=== PATIENT | female | born 1975 | race Caucasian/White ===

== ENCOUNTER 2016-05-02 08:36 | Emergency (ER) | payer OTHER ==
[2016-05-02 08:55] VITALS: BP 136/85
--- NOTE | 2016-05-02 09:31 | UC ---
Respiratory Complaint HPI - HPI Summary HPI Summary: URI symptoms for past [address], TONEY, chills, myalgia, congestion. Now still congested, but has a productive cough and lost her voice. No fevers measured in past few days. Works in [employer], nurses there sent her home today. Non-smoker, no history of asthma - History of Current Complaint Chief Complaint: UCRespiratory Stated Complaint: COUGH,CONGESTION Time Seen by Provider: 05/02/16 09:14 Hx Obtained From: Patient Hx Last Menstrual Period: 04/30/16 Onset/Duration: Gradual Onset, Lasting Days - 6 Timing: Constant Severity Initially: Mild Severity Currently: Mild Character: Cough: Productive Aggravating Factors: Exertion, Recumbent Position Alleviating Factors: Nothing Associated Signs And Symptoms: Positive: Chills, URI, Nasal Congestion, Hoarseness - Risk Factors Pulmonary Embolism Risk Factors: Negative Cardiac Risk Factors: Negative Pseudomonas Risk Factors: Negative Tuberculosis Risk Factors: Negative - Allergies/Home Medications Allergies/Adverse Reactions: Allergies Allergy/AdvReac Type Severity Reaction Status Date / Time No Known Allergies Allergy Verified 05/02/16 08:52 Home Medications: Home Medications Chlorpheniramine-Phenylephrine [Brissa-Tryon Plus Cold 2-7.8-325 mg] 2 tab PO Q4H PRN 05/02/16 [History Confirmed 05/02/16] Dextromethorphan HBr [Vicks Dayquil Cough] 15 mg PO Q6H PRN 05/02/16 [History Confirmed 05/02/16] PMH/Surg Hx/FS Hx/Imm Hx Previously Healthy: Yes Respiratory History Of: Denies: Asthma - cough for 3 days , no fever Neurological History Of: Reports: Migraine - OFTEN, UNKNOWN ETIOLOGY Cancer History Of: Denies: Breast Cancer - Surgical History Surgical History: Yes Surgery Procedure, Year, and Place: 1998 LEFT ARM SURGERY, [place]. 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 Lives: With Family Alcohol Use: Occasionally Substance Use Type: None Smoking Status (MU): Former Smoker Amount Used/How Often: IN HIGH SCHOOL When Did the Patient Quit Smoking/Using Tobacco: 1991 - Immunization History Most Recent Influenza Vaccination: February 2016 Review of Systems Constitutional: Negative Skin: Negative Eyes: Negative ENT: Ear Ache, Nasal Discharge Respiratory: Cough Cardiovascular: Negative Gastrointestinal: Negative Genitourinary: Negative Motor: Negative Neurovascular: Negative Musculoskeletal: Negative Neurological: Negative Psychological: Negative All Other Systems Reviewed And Are Negative: Yes Physical Exam Triage Information Reviewed: Yes Appearance: Well-Appearing, No Pain Distress, Well-Nourished Vital Signs: Initial Vital Signs Temp 98.3 F 05/02/16 08:49 Pulse 70 05/02/16 08:49 Resp 16 05/02/16 08:49 BP 136/85 05/02/16 08:49 Pulse Ox 100 05/02/16 08:49 Vital Signs Reviewed: Yes Eye Exam: Normal ENT: Positive: Hearing grossly normal, Pharynx normal, Nasal congestion, TMs normal, Muffled/hoarse voice - hoarse. Negative: Tonsillar swelling, Tonsillar exudate, Trismus Neck exam: Normal Neck: Positive: Supple Respiratory Exam: Normal Respiratory: Positive: Lungs clear, Normal breath sounds, No respiratory distress, No accessory muscle use Cardiovascular Exam: Normal Musculoskeletal Exam: Normal Neurological Exam: Normal Psychological Exam: Normal Skin Exam: Normal UC Diagnostic Evaluation - Laboratory O2 Sat by Pulse Oximetry: 100 Respiratory Course/Dx - Differential Dx/Diagnosis Differential Diagnosis/HQI/PQRI: Asthma, Bronchitis, Lower Resp Infection, Sinusitis Provider Diagnoses: URI Discharge - Discharge Plan Condition: Stable Disposition: HOME Patient Education Materials: Upper Respiratory Infection (ED) Forms: *Work Release Referrals: Nahomi Hutchins NP [Primary Care Provider] -
== END 2016-05-02 09:32 | disposition home or self-care (01) ==
LOC: UCCORT 08:36
DX: J06.9 Acute upper respiratory infection, unspecified (principal); Z87.891 Personal history of nicotine dependence
CPT/HCPCS: 99211; G0463

== ENCOUNTER 2017-02-13 08:06 | Emergency (ER) | payer OTHER ==
[2017-02-13 08:25] VITALS: BP 121/78
--- NOTE | 2017-02-13 08:37 | UC ---
Throat Pain/Nasal Ariel HPI - HPI Summary HPI Summary: NASAL CONGESTION X 7 DAYS + COUGH , CHEST CONGESTION , PND, NO FEVER, NO CHILLS - History of Current Complaint Chief Complaint: UCRespiratory Stated Complaint: CONGESTION COUGH RUNNY NOSE ACHY Time Seen by Provider: 02/13/17 08:29 Hx Obtained From: Patient Hx Last Menstrual Period: 01/21/17 Onset/Duration: Gradual Onset, Lasting Weeks - 1, Still Present Severity: Moderate Cough: Sputum Appears - YELLOW Associated Signs & Symptoms: Positive: Nasal Discharge. Negative: Dysphagia, FB Sensation, Drooling, Wheezing, Hoarseness, Sinus Discomfort, Fever - Allergies/Home Medications Allergies/Adverse Reactions: Allergies Allergy/AdvReac Type Severity Reaction Status Date / Time No Known Allergies Allergy Verified 02/13/17 08:27 Home Medications: Home Medications Cholecalciferol [Vitamin D] 1,000 unit PO DAILY 02/13/17 [History Confirmed 05/01] Multiple Vitamin [Multi Vitamin] 1 tab PO DAILY 02/13/17 [History Confirmed 05/01] Phenylephrine-Diphenhydramine- [MUCINEX SINUS-MAX DAY GINI Liquid] 1 mis PO DAILY 02/13/17 [History Confirmed 02/13/17] PMH/Surg Hx/FS Hx/Imm Hx Previously Healthy: Yes - Surgical History Surgical History: Yes Surgery Procedure, Year, and Place: 1998 LEFT ARM SURGERY, [place]. 2005 & 2010 CSECTION X 2, [facility] - Family History Known Family History: Positive: Hypertension - Social History Alcohol Use: Occasionally Substance Use Type: None Smoking Status (MU): Never Smoked Tobacco Amount Used/How Often: IN HIGH SCHOOL When Did the Patient Quit Smoking/Using Tobacco: 1991 - Immunization History Most Recent Influenza Vaccination: February 2016 Review of Systems Constitutional: Negative Skin: Negative Eyes: Negative ENT: Sore Throat, Nasal Discharge Respiratory: Cough Cardiovascular: Negative Gastrointestinal: Negative Is Patient Immunocompromised?: No All Other Systems Reviewed And Are Negative: Yes Physical Exam Triage Information Reviewed: Yes Appearance: Well-Appearing, No Pain Distress, Well-Nourished Vital Signs: Initial Vital Signs Temp 97.8 F 02/13/17 08:15 Pulse 69 02/13/17 08:15 Resp 16 02/13/17 08:15 BP 121/78 02/13/17 08:15 Pulse Ox 100 11/01/17 08:15 Vital Signs Reviewed: Yes Eyes: Positive: Conjunctiva Clear ENT: Positive: Normal ENT inspection, Hearing grossly normal, Pharynx normal Neck exam: Normal Neck: Positive: Supple, Nontender, No Lymphadenopathy Respiratory: Positive: Chest non-tender, Lungs clear, Normal breath sounds Cardiovascular: Positive: RRR, No Murmur, Pulses Normal Skin Exam: Normal Throat Pain/Nasal Course/Dx - Differential Dx/Diagnosis Provider Diagnoses: URI Discharge - Discharge Plan Condition: Stable Disposition: HOME Patient Education Materials: Upper Respiratory Infection (ED) Referrals: Nahomi Hutchins NP [Primary Care Provider] - If Needed Additional Instructions: VIRAL ILLNESS, CONT. WITH REST, INCREASE FLUID, TRY FLONASE NASAL SPRAY DAILY FOLLOW UP NEEDED
== END 2017-02-13 08:43 | disposition home or self-care (01) ==
LOC: UCCORT 08:06
DX: J06.9 Acute upper respiratory infection, unspecified (principal)
CPT/HCPCS: 99211; G0463

== ENCOUNTER 2017-05-23 07:52 | Emergency (ER) | payer OTHER ==
[2017-05-23 08:10] VITALS: BP 112/74
== END 2017-05-23 08:44 | disposition left against medical advice (07) ==
LOC: UCCORT 07:52
DX: J02.9 Acute pharyngitis, unspecified (principal); Z53.21 Procedure and treatment not carried out due to patient leaving prior to being seen by health care provider
CPT/HCPCS: 87651

== ENCOUNTER 2018-06-03 16:40 | Emergency (ER) | payer OTHER ==
[2018-06-03 17:49] VITALS: BP 131/77
--- NOTE | 2018-06-03 18:50 | UC ---
Elbow Pain - HPI Summary HPI Summary: The patient is a 43-year-old female that injured her right elbow yesterday. She is right handed. She was working out with weights and using a step stool. The stool tipped over and she fell landing directly on her right elbow. She is unable to fully extend her arm. She has pain with full supination and pronation. She has been taking ibuprofen. - History of Current Complaint Chief Complaint: UCUpperExtremity Stated Complaint: RIGHT ELBOW INJURY Time Seen by Provider: 06/03/18 18:36 Hx Obtained From: Patient Hx Last Menstrual Period: 05/19/18 Onset/Duration: Hours Severity Initially: Moderate Severity Currently: Mild Pain Intensity: 0 - pain with movement only Pain Scale Used: 0-10 Numeric Location Of Pain: Is Diffuse Character: Dull, Aching Aggravating Factor(s): Movement Alleviating Factor(s): Rest, Ice, OTC Meds Associated Signs And Symptoms: Positive: Negative - Allergies/Home Medications Allergies/Adverse Reactions: Allergies Allergy/AdvReac Type Severity Reaction Status Date / Time No Known Allergies Allergy Verified 06/03/18 17:39 Home Medications: Home Medications NK [No Home Medications Reported] 06/03/18 [History Confirmed 06/03/18] PMH/Surg Hx/FS Hx/Imm Hx Previously Healthy: Yes - Surgical History Surgical History: Yes Surgery Procedure, Year, and Place: 1998 LEFT ARM SURGERY, [place]. 2005 & 2010 CSECTION X 2, [facility]. BREAST REDUCTION - Family History Known Family History: Positive: Hypertension - Social History Alcohol Use: Occasionally Substance Use Type: None Smoking Status (MU): Never Smoked Tobacco Amount Used/How Often: IN HIGH SCHOOL When Did the Patient Quit Smoking/Using Tobacco: 1991 - Immunization History Most Recent Influenza Vaccination: February 2016 Review of Systems All Other Systems Reviewed And Are Negative: Yes Constitutional: Positive: Negative Skin: Positive: Negative Eyes: Positive: Negative ENT: Positive: Negative Respiratory: Positive: Negative Cardiovascular: Positive: Negative Gastrointestinal: Positive: Negative Genitourinary: Positive: Negative Motor: Positive: Negative Neurovascular: Positive: Negative Musculoskeletal: Positive: Arthralgia - right elbow only Neurological: Positive: Negative Psychological: Positive: Negative Physical Exam Triage Information Reviewed: Yes Appearance: Well-Appearing, No Pain Distress, Well-Nourished Vital Signs: Initial Vital Signs Temp 97.5 F 06/03/18 17:42 Pulse 64 06/03/18 17:42 Resp 16 06/03/18 17:42 BP 131/77 06/03/18 17:42 Pulse Ox 100 06/03/18 17:42 Vital Signs Reviewed: Yes Eyes: Positive: Conjunctiva Clear ENT: Positive: Hearing grossly normal. Negative: Nasal congestion, Nasal drainage, Trismus, Muffled voice, Hoarse voice Neck: Positive: Supple Respiratory: Positive: Lungs clear, Normal breath sounds, No respiratory distress, No accessory muscle use Cardiovascular: Positive: RRR, No Murmur Musculoskeletal: Positive: ROM Limited @ - right elbow, n/v intact, no open skin Neurological Exam: Normal Neurological: Positive: Fatigued Skin Exam: Normal Procedures - Splinting Right Upper Extremity Location: fracture coronoid process of ulna (R) Hand-Made Type: orthoglass Splint: posterior Pre-Proc Neuro Vasc Exam: normal Post-Proc Neuro Vasc Exam: normal Diagnostics - Radiology No standard instances Radiology Interpretation Completed By: ED Physician Summary of Radiographic Findings: +ant/post fat pads, fx coronoid process of ulna Elbow Pain Course/Dx - Differential Dx/Diagnosis Provider Diagnosis: Fracture of coronoid process of ulna, right, closed Discharge - Sign-Out/Discharge Documenting (check all that apply): Patient Departure All imaging exams completed and their final reports reviewed: No - Discharge Plan Condition: Stable Disposition: HOME Patient Education Materials: Elbow Fracture (ED), Splint Care (ED) Referrals: Twan Bell MD [Medical Doctor] - As Soon As Possible Additional Instructions: You have a fracture of the CORONOID PROCESS OF THE RIGHT ULNA Even though it is a tiny fracture the coronoid process plays an import role in the stability of the elbow joint. Splint sling tylenol or advil if needed IF UNABLE TO GET IN TO SEE A [facility] CALL DR. BELL'S OFFICE take copies of films - Billing Disposition and Condition Condition: STABLE Disposition: Home
--- NOTE | 2018-06-04 08:32 | UC ---
- Progress Note Progress Note: Radiologist reading radiologist reading of the right elbow x-ray from June 03, 2018 is read as a nondisplaced fracture of the coronoid process of the ulna. Provider interpretation of the same date is the same therefore there is no discrepancy. Patient has been referred to orthopedics. Course/Dx - Diagnoses Provider Diagnoses: Fracture of coronoid process of ulna, right, closed Discharge - Sign-Out/Discharge Documenting (check all that apply): Patient Departure All imaging exams completed and their final reports reviewed: Yes - Discharge Plan Condition: Stable Disposition: HOME Patient Education Materials: Elbow Fracture (ED), Splint Care (ED) Referrals: Twan Bell MD [Medical Doctor] - As Soon As Possible Additional Instructions: You have a fracture of the CORONOID PROCESS OF THE RIGHT ULNA Even though it is a tiny fracture the coronoid process plays an import role in the stability of the elbow joint. Splint sling tylenol or advil if needed IF UNABLE TO GET IN TO SEE A [facility] ORTHOPEDIST CALL DR. BELL'S OFFICE take copies of films - Billing Disposition and Condition Condition: STABLE Disposition: Home
== END 2018-06-03 19:57 | disposition home or self-care (01) ==
LOC: UCCORT 16:40
DX: S52.044A Nondisplaced fracture of coronoid process of right ulna, initial encounter for closed fracture (principal); W18.39XA Other fall on same level, initial encounter; Y92.9 Unspecified place or not applicable
CPT/HCPCS: 99212; G0463